=== PATIENT | male | born 1935 | race Native Hawaiian/Other Pacific Islander ===

== ENCOUNTER → 2018-07-08 | Day surgery (SDC) | payer MEDICARE ==
[~2018-07-08] MED LIST: Caffeine Citrated **INJ** 20 MG/ML IV ONE
--- NOTE | 2018-07-10 04:11 | CARD ---
APPROVED REPORT Date of service: 07/08/2018 Protocol: LEXISCAN Test Type: LEXISCAN STRESS Test Indications: CAD Medical History: CP Target HR: 138 bpm Resting ECG: NSR WITH RBBB AND LAHB Resting Heart Rate: 67 bpm Resting Blood Pressure: 128/80mmHg submaximum (85%): 117 bpm TEST SUMMARY PREINFSNHYPERV.01:210.00..016766/80.0. INFUSIONDOSE 100:300.00.01.063/.0. CSHQRTRBS78:540.00..110557/80.0. PROCEDURE Pharmacologic stress testing was performed using 0.4mg per 5ml of regadenoson given intravenously over 7-10 seconds. POST EXERCISE Reason for Termination: Protocol Completed Target HR: No Max HR: 63 bpm 60% of Maximum Predicted HR: 138 bpm Exercise duration: 00:30 min:sec, 0 Stage Exercise capacity: 1.0METs Max Blood Pressure: 130/80mmHg Blood Pressure response to exercise: normal resting BP - appropriate response Heart Rate response to exercise: appropriate Chest Pain: No, none Angina index: 0 Arrhythmia: No, none ST Change: No, none Deviation: 0 mm INTERPRETATION Stress EKG Conclusion: NEGATIVE LEXISCAN STRESS TEST NORMAL BP RESPONSE TO LEXISCAN NUCLEAR STUDIES TO BE READ SEPARATELY EXAM: Myocardial Perfusion REST/STRESS Imaging Protocol The imaging protocol used to acquire images was Rest Tc-99m/stress Tc-99m 1 day Rest Spect myocardial perfusion imaging was performed in supine position 45 minutes following the injection of 13.2 mCi of Tc-99 Myoview. Gated Stress Spect was performed 45 minutes after intravenous 32.5 mCi Tc-99 Myoview injection. The images were gated to evaluate regional wall motion and calculate ventricular ejection fraction.Images were reconstructed using backfilter projection method in short horizontal and verticle long axis. Spect slices were generated. RESTING DATA EDV74.92vrTV8.30L/min ESV18.00mlMyocardial Worz604.00g Av. Heart Rate59.00bpm EF76.00% STRESS DATA EDV78.09wfYS3.60L/min ESV19.00mlMyocardial Gorl292.00g EF76.00% Regional WT score at stress:0.00 Regional WM score at stress:0.00 Summed WT score at stress:4.00 Av. Heart Rate61.00bpmSummed WM score at stress:1.00 LV Perf. Quant 17 Seg. SSS1.00 17 Seg. SRS1.00 17 Seg. SDS0.00 Stress Defect Extent (% LAD)0.00Rest Defect Extent (% LAD)0.00Rev. Defect Extent (% LAD)0.00 Stress Defect Extent (% LCX)6.30Rest Defect Extent (% LCX)7.50Rev. Defect Extent (% LCX)0.00 Stress Defect Extent (% RCA)0.00Rest Defect Extent (% RCA)0.00Rev. Defect Extent (% RCA)0.00 Stress Defect Extent (% JULIET)1.10Rest Defect Extent (% JULIET)2.60Rev. Defect Extent (% JULIET)0.00 IMPRESSION Normal Myocardial Perfusion exercise stress study Left Ventricle LV Function:Left ventricle systolic function is normal. The Ejection Fraction is >70%. Metabolism/Perfusion Defects: There is no stress-induced ischemia. There are no perfusion/metabolism defects. Conclusion 1. There is no stress-induced ischemia. 2. Left ventricle systolic function is normal. 3. The Ejection Fraction is >70%.
--- NOTE | 2018-07-11 08:22 | PROCN ---
DATE: 07/08/2018 TILT-TABLE TEST RESULT FOR [facility]. An 83-year-old, male, [place]. INDICATION: Near syncope. CIGAR PACKER AND GRADER: Osvaldo Plaza MD REFERRING PHYSICIAN: Juanjo Wetzel MD DESCRIPTION OF PROCEDURE: The patient was brought to the labeling machine operator and was put on the tilt-table. The test was performed in the usual routine protocol. Blood pressure and heart rate response were monitored at 30 degrees for 5 minutes and 60 degrees for 20 minutes. On review of his blood pressure and heart rate response, there was a 25 mmHg slow drop in blood pressure and less than 20 beats slow drop in heart rate. The patient had mild lightheadedness during the test. IMPRESSION: Heart rate and blood pressure response consistent with autonomic neuropathy. The patient tolerated the procedure. Osvaldo Plaza MD
== END | disposition home or self-care (01) ==
LOC: C.CARD 07:06 → C.CATHLAB 07:06 → EDSTATUS 08:00
PROVIDERS: ATTEND Internal Medicine
DX: I25.10 Atherosclerotic heart disease of native coronary artery without angina pectoris (principal); R06.02 Shortness of breath; R42 Dizziness and giddiness
CPT/HCPCS: 78452; 82948; 93017; 93306; 93660; A9502; J2785